=== PATIENT | male | born 1985 | race Caucasian/White ===

== ENCOUNTER 2017-04-01 18:24 | Emergency (ER) | payer SELFPAY ==
[2017-04-01] MEDS ORDERED: Diphtheria/Tetanus Toxoids,Adult (Td) 0.5 ML SDV IM ONE (19:16)
--- NOTE | 2017-04-01 19:17 | EDM.PDOC ---
ED HPI GENERAL MEDICAL PROBLEM - General Chief Complaint: Upper Extremity Injury/Pain Stated Complaint: LT THUMB LAC Time Seen by Provider: 04/01/17 19:00 Source of Information: Reports: Patient History Limitations: Reports: No Limitations - History of Present Illness INITIAL COMMENTS - FREE TEXT/NARRATIVE: Fer was visiting a friend this pm when the dog nipped him in the L hand, involving the L thumb. There was some minor bleeding and bite atkinson. The dog is vaccinated. Fer needs his tetanus vax status updated. He has taken no meds. - Related Data Allergies Allergy/AdvReac Type Severity Reaction Status Date / Time amoxicillin Allergy Cannot Verified 04/01/17 19:11 Remember Home Meds: Home Meds Sulfamethoxazole/Trimethoprim [Bactrim Ds Tablet] 1 each PO BID #14 tablet 04/01 [Rx] metroNIDAZOLE [Flagyl] 500 mg PO Q12H #14 tab 04/01/17 [Rx] Review of Systems - Review of Systems Review Of Systems: ROS reveals no pertinent complaints other than HPI. ED EXAM, GENERAL - Physical Exam Exam: See Below Exam Limited By: No Limitations General Appearance: Alert, WD/WN, No Apparent Distress Head: Atraumatic, Normocephalic Neck: Normal Inspection Respiratory/Chest: Lungs Clear Cardiovascular: Regular Rate, Rhythm Back Exam: Normal Inspection Extremities: Normal Range of Motion, Other (superficial bite wounds to L thumb) Neurological: Alert, Oriented, CN II-XII Intact, No Motor/Sensory Deficits Psychiatric: Normal Affect, Normal Mood Skin Exam: Warm, Dry, Other (superficial bite wounds to L thumb along ulnar margin of thumb nail and thumb pad, no active bleeding) Lymphatic: No Adenopathy Course - Vital Signs Text/Narrative:: L thumb wounds were cleaned and dressed. Last Recorded V/S: Last Vital Signs Temp 36.6 C 04/01/17 18:50 Pulse 75 04/01/17 18:50 Resp 18 04/01/17 18:50 BP 142/87 H 04/01/17 18:50 Pulse Ox 98 04/01/17 18:50 - Orders/Labs/Meds Orders: Active Orders 24 hr Category Date Time Status Vaccines to be Administered [RC] PER UNIT ROUTINE Care 04/01/17 19:16 Active Meds: Medications Discontinued Medications Generic Name Dose Route Start Last Admin Trade Name Freq PRN Reason Stop Dose Admin Tetanus/Diphtheria Toxoids 0.5 ml 04/01/17 19:16 Tenivac IM 04/01/17 19:17 .ONCE ONE Departure - Departure Time of Disposition: 19:30 Disposition: Home, Self-Care 01 Condition: Good Clinical Impression: Dog bite of left hand Qualifiers: Encounter type: initial encounter Qualified Code(s): S61.452A - Open bite of left hand, initial encounter; W54.0XXA - Bitten by dog, initial encounter; W54.0XXA - Bitten by dog, initial encounter - Discharge Information Prescriptions: metroNIDAZOLE [Flagyl] 500 mg PO Q12H #14 tab Sulfamethoxazole/Trimethoprim [Bactrim Ds Tablet] 1 each PO BID #14 tablet Instructions: Animal Bite, [id number], Laceration Care, Adult, Sulfamethoxazole; Trimethoprim, SMX-TMP tablets, Metronidazole tablets or capsules Referrals: PCP,None [Primary Care Provider] - Forms: ED Department Discharge - Problem List & Annotations (1) Dog bite of left hand SNOMED Code(s): 897146645 Code(s): S61.452A - OPEN BITE OF LEFT HAND, INITIAL ENCOUNTER; W54.0XXA - BITTEN BY DOG, INITIAL ENCOUNTER Status: Acute Current Visit: Yes Annotation/Comment:: Dog bite wounds were superficial to Left thumb, and where cleaned and dressed. I suggested daily wound cares, administered dT vax booster , and dispensed Bactrim DS bid and Flagyl 500 mg bid for 1 week. The dog was previously vaccinated by fisheries technician. The dog was reportedly euthanized by the fisheries technician this pm. Qualifiers: Encounter type: initial encounter Qualified Code(s): S61.452A - Open bite of left hand, initial encounter; W54.0XXA - Bitten by dog, initial encounter; W54.0XXA - Bitten by dog, initial encounter - Problem List Review Problem List Initiated/Reviewed/Updated: Yes - My Orders Last 24 Hours: My Active Orders 04/01/17 19:16 Vaccines to be Administered [RC] PER UNIT ROUTINE - Assessment/Plan Last 24 Hours: My Active Orders 04/01/17 19:16 Vaccines to be Administered [RC] PER UNIT ROUTINE Plan: Follow up with PCP if needed. Prognosis is good.
== END 2017-04-01 19:30 | disposition home or self-care (01) ==
LOC: FB.ED 18:24
DX: S61.052A Open bite of left thumb without damage to nail, initial encounter (principal); W54.0XXA Bitten by dog, initial encounter; Z88.1 Allergy status to other antibiotic agents
CPT/HCPCS: 90714; 99283

== ENCOUNTER 2017-04-17 09:40 | Emergency (ER) | payer OTHER ==
[2017-04-17] MEDS ORDERED: Ketorolac 60 MG/2 ML SDV IM ONE (11:01)
--- NOTE | 2017-04-17 11:04 | EDM.PDOC ---
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 Rt ankle Pain Score (Numeric/FACES): 8 - Related Data Allergies Allergy/AdvReac Type Severity Reaction Status Date / Time amoxicillin Allergy Cannot Verified 04/17/17 10:44 Remember Home Meds: Home Meds NK [No Known Home Meds] 04/17/17 [History] Past Medical History - Past Health History Medical/Surgical History: Denies Medical/Surgical History Cardiovascular History: Reports: Other (See Below) Other Cardiovascular History: says he has high bp but never been treated Social & Family History - Family History Family Medical History: Noncontributory - Tobacco Use Smoking Status *Q: Current Every Day Smoker Years of Tobacco use: 16 Packs/Tins Daily: 1.5 - Caffeine Use Caffeine Use: Reports: Coffee - Recreational Drug Use Recreational Drug Use: Yes Drug Use in Last 12 Months: Yes Recreational Drug Type: Reports: Marijuana/Hashish Review of Systems - Review of Systems Review Of Systems: See Below Constitutional: Reports: No Symptoms Eyes: Reports: No Symptoms Ears: Reports: No Symptoms Nose: Reports: No Symptoms Mouth/Throat: Reports: No Symptoms Respiratory: Reports: No Symptoms Cardiovascular: Reports: No Symptoms GI/Abdominal: Reports: No Symptoms Genitourinary: Reports: No Symptoms Musculoskeletal: Reports: Other (R ankle pain) Skin: Reports: No Symptoms Neurological: Reports: No Symptoms Psychiatric: Reports: No Symptoms ED EXAM, GENERAL - Physical Exam Exam: See Below Exam Limited By: No Limitations General Appearance: Alert, WD/WN, No Apparent Distress Respiratory/Chest: No Respiratory Distress, Lungs Clear Cardiovascular: Regular Rate, Rhythm Extremities: Other (R ankle with 2+ DP pulse, m/s intact, 1-2+ tender distal 6 cm of fibula, ant/pos joint line NT, slight swell and tender at medial malleolus , no ecchymosis, posterior splint applied with stockinet, webroll, padded fiberglass and 4" [place] x 2) Course - Vital Signs Last Recorded V/S: Last Vital Signs Temp 36.7 C 04/17/17 09:45 Pulse 83 04/17/17 09:45 Resp 17 04/17/17 09:45 BP 144/78 H 04/17/17 09:45 Pulse Ox 100 04/17/17 09:45 - Orders/Labs/Meds Orders: Active Orders 24 hr Category Date Time Status Ankle Min 3V Rt [CR] Stat Exams 04/17/17 10:01 Taken Departure - Departure Time of Disposition: 11:02 Disposition: Home, Self-Care 01 Condition: Good Clinical Impression: Closed fracture of right distal fibula - Discharge Information Instructions: Nondisplaced Fibular Ankle Fracture Treated With Immobilization, Adult, Cast or Splint Care, Adult, Crutch Use, Adult Referrals: PCP,None [Primary Care Provider] - Additional Instructions: Keep clean and dry. For pain and inflammation, take ibuprofen 200 mg 3 tabs every 6 hours as needed. Keep elevated for 30 minutes 2 times a day for 3 days. Use ice for 10 minutes several times a day for 2 days. No weight bearing. Use crutches. See orthopedic surgeon in 3-4 days. Return to ED if you are feeling worse. Call your Physician or Return to Emergency Department if: * Your condition worsens in any way. * You develop fever greater than 100.4. * You have vomitting that does not stop with medications. * You have pain that is not controlled with medications. - My Orders Last 24 Hours: My Active Orders 04/17/17 10:01 Ankle Min 3V Rt [CR] Stat - Assessment/Plan Last 24 Hours: My Active Orders 04/17/17 10:01 Ankle Min 3V Rt [CR] Stat
--- NOTE | 2017-04-18 11:04 | CR ---
INDICATION: Fell on ice. RIGHT ANKLE: Three views of the right ankle were obtained. No comparisons were available. There is widened joint space medially with what appears to be a joint mouse at the medial aspect of the ankle mortise. Irregularity and sclerosis of the talus is noted in that area. Findings suggest an osteochondral chip fracture fragment, which could be on the basis of previous injury, possibly with aseptic necrosis. Findings should be correlated clinically in that regard. There is soft tissue swelling laterally and an oblique fracture through the distal shaft and metaphysis of the fibula with minimal posterior offset - 2 mm posterior offset of the distal fibular fracture fragment. No significant angulation was identified. The ankle mortise otherwise appeared to be intact. IMPRESSON: 1. Acute fracture of the distal fibula with adequate position and alignment. 2. 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 MTDD
== END 2017-04-17 11:14 | disposition home or self-care (01) ==
LOC: FB.ED 09:40
DX: S82.831A Other fracture of upper and lower end of right fibula, initial encounter for closed fracture (principal); F17.210 Nicotine dependence, cigarettes, uncomplicated; Z88.1 Allergy status to other antibiotic agents; W00.0XXA Fall on same level due to ice and snow, initial encounter
CPT/HCPCS: 29515; 73610-RT; 99283